=== PATIENT | female | born 2005 | race Caucasian/White ===

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

== ENCOUNTER 2023-02-14 20:37 | Emergency (ER) | payer OTHER ==
[~2023-02-14] VITALS: Ht 162.6 cm; Wt 49.9 kg
[~2023-02-14 20:37] MED LIST: 8 HOUR650 MG PO; DICLOXACILLIN500 MG PO; IBUPROFEN800 MG PO; IRON325 M1 PO; PRENATAL 19 CH1 EAC1 PO; VITAMIN C250 M1 PO
[2023-02-14] MEDS ORDERED: CLEOCIN HCL300 MG PO (21:43)
[2023-02-14 21:49] VITALS: BP 110/83
== END 2023-02-14 21:50 | disposition home or self-care (01) ==
LOC: ED 20:37
DX: K04.7 Periapical abscess without sinus (principal); Z79.899 Other long term (current) drug therapy
CPT/HCPCS: 64400; 99282-25

== ENCOUNTER 2023-04-19 11:23 | Emergency (ER) | payer OTHER ==
[~2023-04-19] VITALS: Ht 162.6 cm; Wt 46.7 kg
[~2023-04-19 11:23] MED LIST changes: +CLEOCIN HCL300 MG PO
[2023-04-19 11:36] LABS: BILIRUBIN, URINE NEGATIVE (negative); BLOOD/HGB, URINE MODERATE (Negative); KETONE, URINE SMALL (Negative); LEUK ESTERASE, URINE NEGATIVE (negative); NITRITE, URINE NEGATIVE (negative)
[2023-04-19 11:48] LABS: EPITHELIAL CELLS, URINE SQUAMOUS 4+ /lpf (0-1+); REFLEX CULTURE, URINE No (No); WHITE BLOOD CELLS, URINE 0-1 /HPF (0-5)
[2023-04-19 12:15] LABS: BASOPHILS 0.7 % (0-2); HEMATOCRIT 38.1 % (35.0-50.0); HEMOGLOBIN 13.1 g/dL (12.0-18.0); MCH 29.3 (27-36); MCHC 34.4 g/dl (30-36); MCV 85.2 fl (81-99); MONOCYTES 4.2 % (0-12); NEUTROPHILS 68.1 % (39-80); PLATELET COUNT 303 K/uL (140-440); RBC 4.47 M/ul (4.3-5.7); RDW 12.8 (10.5-15.0)
[2023-04-19 12:31] LABS: ALBUMIN 4.3 g/dL (3.4-5.0); ALBUMIN/GLOBULIN RATIO 1.48 (1.1-2.4); ANION GAP 12.8 (7-21); BILIRUBIN, TOTAL 0.9 ng/dL (0.2-1.0); BUN/CREATININE RATIO 16.21 (6.0-28.6); CALCIUM 8.7 mg/dL (8.5-10.1); CREATININE, SERUM 0.74 mg/dL (0.55-1.02); POTASSIUM 3.8 mmol/L (3.5-5.1); PROTEIN, TOTAL 7.2 g/dL (6.4-8.2)
[2023-04-19 13:18] VITALS: BP 118/78
== END 2023-04-19 13:18 | disposition home or self-care (01) ==
LOC: ED 11:23
PROVIDERS: Emergency Medicine
DX: R10.30 Lower abdominal pain, unspecified (principal); Z79.899 Other long term (current) drug therapy
CPT/HCPCS: 36415; 80053; 81001; 84702; 84703; 85025; 99283

== ENCOUNTER 2023-04-19 17:00 | Emergency (ER) | payer OTHER ==
[~2023-04-19] VITALS: Ht 162.6 cm; Wt 46.7 kg
--- OUTSIDE RECORDS SUMMARY | 2023-04-19 17:08 | XMS ---
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 [facility] VISIT COUNT (12 MO.) 3 [facility] TOTAL 3 NOTE: Visits indicate total known visits. ED/UCC VISIT TRACKING (12 MO.) 04/19/2023 17:01 [facility] [place] TYPE: Emergency COMPLAINT: - ARM NUMBNESS 04/19/2023 11:24 [facility] [place] TYPE: Emergency COMPLAINT: - URINE PROBLEM 02/14/2023 20:[address] 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
[2023-04-19 20:26] VITALS: BP 98/60
== END 2023-04-19 20:27 | disposition home or self-care (01) ==
LOC: ED 17:00
DX: B34.9 Viral infection, unspecified (principal); Z79.899 Other long term (current) drug therapy
CPT/HCPCS: 99283

== ENCOUNTER 2023-05-01 06:11 | Emergency (ER) | payer OTHER ==
[~2023-05-01] VITALS: Ht 162.6 cm; Wt 47.0 kg
--- OUTSIDE RECORDS SUMMARY | 2023-05-01 06:18 | XMS ---
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 - 2 Visits in 30 Days CARE PROVIDERS -Jonna- Dentist: Independent Living Instructor [facility] PHONE: [phone] -Abhijit- Dentist: Independent Living Instructor [facility] PHONE: [phone] Colette has no Care Guidelines for this patient. [facility] VISIT COUNT (12 MO.) [address] [place] [address] TOTAL 4 NOTE: Visits indicate total known visits. ED/UCC VISIT TRACKING (12 MO.) 05/01/2023 06:12 [facility] [place] TYPE: Emergency COMPLAINT: - HIT BY FALLING OBJECT 04/19/2023 17:01 [facility] [place] TYPE: Emergency COMPLAINT: - ARM NUMBNESS DIAGNOSES: - Anesthesia of skin - Other alf (current) drug therapy - Viral infection, unspecified 04/19/2023 11:[address] 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
[2023-05-01] MEDS ORDERED: PRENATAL DHA200 MG PO (06:22)
[2023-05-01 07:35] VITALS: BP 130/95
== END 2023-05-01 07:30 | disposition home or self-care (01) ==
LOC: ED 06:11
DX: S00.12XA Contusion of left eyelid and periocular area, initial encounter (principal); Z79.899 Other long term (current) drug therapy; Y04.0XXA Assault by unarmed brawl or fight, initial encounter; Y92.009 Unspecified place in unspecified non-institutional (private) residence as the place of occurrence of the external cause
CPT/HCPCS: 70486; 99284-25

== ENCOUNTER 2024-01-23 22:48 | Inpatient (IN) | payer OTHER ==
[~2024-01-23] VITALS: Ht 162.6 cm; Wt 60.8 kg
[~2024-01-23 22:48] MED LIST changes: +CALCIUM500 M1 PO; +ONDANSETRON ODT4 MG PO; +PRENATAL DHA200 MG PO
[2024-01-24] MEDS ORDERED: CALCIUM CARBONATE 500 MG CHEW PO PRN ×2 (00:30→12:00)
[2024-01-24] MEDS ORDERED: OXYTOCIN/DEXTROSE 5% 20 UNITS/100 ML BAG IV SCH (00:30)
[2024-01-24] MEDS ORDERED: MAGNESIUM HYDROXIDE/AL HYDROX 30 ML CUP PO PRN ×2 (00:30→12:00)
[2024-01-24] MEDS ORDERED: LACTATED RINGER'S 1,000 ML IV PRN (00:30)
[2024-01-24] MEDS ORDERED: LACTATED RINGER'S 1,000 ML IV SCH (00:30)
[2024-01-24] MEDS ORDERED: LIDOCAINE 2% VISCOUS 6 ML SYR TOP ONE ×2 (00:30)
[2024-01-24 00:48] LABS: HEMATOCRIT 36.9 % (35.0-50.0); HEMOGLOBIN 12.3 g/dL (12.0-18.0); MCH 28.4 (27-36); MCHC 33.4 g/dl (30-36); MCV 84.9 fl (81-99); RBC 4.35 M/ul (4.3-5.7); RDW 13.1 (10.5-15.0)
[2024-01-24 00:55] LABS: AMPHETAMINES, URINE NEGATIVE (NEGATIVE); BARBITURATES, URINE NEGATIVE (NEGATIVE); BENZODIAZEPINE, URINE NEGATIVE (NEGATIVE); BUPRENORPHINE, URINE NEGATIVE (NEGATIVE); CANNABINOID, URINE NEGATIVE (NEGATIVE); COCAINE, URINE NEGATIVE (NEGATIVE); ECSTASY, URINE NEGATIVE (NEGATIVE); FENTANYL, URINE NEGATIVE (NEGATIVE); METHADONE, URINE NEGATIVE (NEGATIVE); OPIATES, URINE NEGATIVE (NEGATIVE); OXYCODONE, URINE NEGATIVE (NEGATIVE); PHENCYCLIDINE, URINE NEGATIVE (NEGATIVE)
[2024-01-24 01:28] LABS: ABO A; RH POSITIVE
[2024-01-24 01:29] LABS: ANTIBODY SCREEN NEGATIVE
[2024-01-24] MEDS ORDERED: ROPIVACAINE 0.2% 200 ML BAG ONE (02:14)
[2024-01-24] MEDS ORDERED: LACTATED RINGER'S 500 ML IV PRN (03:00)
[2024-01-24] MEDS ORDERED: LACTATED RINGER'S 2,000 ML IV ONE (03:00)
[2024-01-24] MEDS ORDERED: ROPIVACAINE 0.2% 200 ML BAG EPIDURAL SCH (03:00)
[2024-01-24] MEDS ORDERED: ePHEDrine sulfate 5 MG/ML SYRINGE IV PRN (03:00)
[2024-01-24 03:19] VITALS: BP 114/68
[2024-01-24] MEDS ORDERED: SENNOSIDES/DOCUSATE 1 EA TAB PO SCH (11:54)
[2024-01-24] MEDS ORDERED: IBUPROFEN 600 MG TAB PO PRN (12:00)
[2024-01-24] MEDS ORDERED: WITCH HAZEL/GLYCERIN 1 EA PAD TOP PRN (12:00)
[2024-01-24] MEDS ORDERED: MAGNESIUM HYDROXIDE 30 ML UDC PO PRN (12:00)
[2024-01-24] MEDS ORDERED: OXYTOCIN/0.9 % SODIUM CHLORIDE 500 ML IV SCH (12:00)
[2024-01-24] MEDS ORDERED: ACETAMINOPHEN 325 MG TAB PO PRN (12:00)
[2024-01-24] MEDS ORDERED: BENZOCAINE 60 ML AEROSOL TOP PRN (12:00)
[2024-01-24] MEDS ORDERED: HYDROCORTISONE ACETATE 25 MG SUPP PR PRN (12:00)
--- NOTE | 2024-01-25 07:35 | PR ---
[facility] [address] [facility] [place], [place] [address] Signed PP Progress Notes Datetime Report Generated by CPN: 01/25/2024 07:35 SUBJECTIVE: [id number] Pain: Within Normal Limits Nausea/Vomiting: Denies Flatus: Yes Vital Signs: [id number] Vital Signs: Reviewed; Within Normal Limits Cardiovascular: Normal Respiratory: Normal Abdomen/Uterus: Normal Lochia: Normal Vulva/Perineum: Not Done Breasts: Not Done CVA Tenderness: Not Done Extremities: Normal Incision: Not Applicable Progress: Normal IMPRESSION/PLAN/PROCEDURES: [id number] Impression: Normal Progression Plan: Continue Present Management; Discharge Progress Notes: Recovering well. going well. Normal lochia. Desires D/C today. Signing Physician: Rox Betts MD Copies: ~ *Electronically Signed* 01/25/24 0735 ROX BETTS MD PATIENT NAME: AMADEO MOODY PROGRESS NOTE DATE OF : 03 PHYSICIAN: ROX BETTS MD RPT #: [id number] REPORT IS CONFIDENTIAL AND NOT TO BE RELEASED WITHOUT AUTHORIZATION
[2024-01-25] MEDS ORDERED: MENTHOL/CETYLPYRD CL 1 LOZ LOZENGE MM PRN (07:45)
[2024-01-28] MEDS ORDERED: PEPCID20 MG PO (01:11)
== END 2024-01-25 14:15 | disposition home or self-care (01) | DRG 807 ==
LOC: FBCO 22:48 → FBC 01-24 00:09
PROVIDERS: ADMIT Obstetrics & Gynecology; ATTEND Obstetrics & Gynecology
PROC: 10E0XZZ Delivery of Products of Conception, External Approach (ICD-10-PCS; principal; 2024-01-24)
PROC: 0UQMXZZ Repair Vulva, External Approach (ICD-10-PCS; 2024-01-24)
PROC: 3E0R3BZ Introduction of Anesthetic Agent into Spinal Canal, Percutaneous Approach (ICD-10-PCS; 2024-01-24)
PROC: 3E0R33Z Introduction of Anti-inflammatory into Spinal Canal, Percutaneous Approach (ICD-10-PCS; 2024-01-24)
DX: O99.02 Anemia complicating childbirth (principal); Z37.0 Single live birth; Z3A.37 37 weeks gestation of pregnancy; Z91.040 Latex allergy status; O70.0 First degree perineal laceration during delivery; Z98.890 Other specified postprocedural states; Z79.899 Other long term (current) drug therapy
CPT/HCPCS: 01960; 36415; 59025; 80307; 85027; 86850; 86900; 86901; A9270; G0463; J7121

== ENCOUNTER 2024-05-25 19:41 | Emergency (ER) | payer OTHER ==
[~2024-05-25] VITALS: Ht 152.4 cm; Wt 54.9 kg
[~2024-05-25 19:41] MED LIST changes: +PEPCID20 MG PO
[2024-05-25 20:10] VITALS: BP 102/82
== END 2024-05-25 20:10 | disposition home or self-care (01) ==
LOC: ED 19:41
DX: S09.90XA Unspecified injury of head, initial encounter (principal); Z87.828 Personal history of other (healed) physical injury and trauma; Z79.899 Other long term (current) drug therapy; W01.198A Fall on same level from slipping, tripping and stumbling with subsequent striking against other object, initial encounter
CPT/HCPCS: 99283

== ENCOUNTER 2024-08-27 18:59 | Emergency (ER) | payer OTHER ==
[~2024-08-27] VITALS: Ht 152.4 cm; Wt 51.0 kg
[2024-08-27 20:04] LABS: BASOPHILS 0.4 % (0-2); EOSINOPHILS 2.5 % (0-6); HEMATOCRIT 35.5 % (35.0-50.0); HEMOGLOBIN 12.1 g/dL (12.0-18.0); LYMPHOCYTES 31.3 % (24-44); MCH 27.7 (27-36); MCV 81.4 fl (81-99); MONOCYTES 5.9 % (0-12); NEUTROPHILS 59.9 % (39-80); PLATELET COUNT 312 K/uL (140-440); RBC 4.37 M/ul (4.3-5.7); RDW 13.7 (10.5-15.0)
[2024-08-27 20:23] LABS: ALBUMIN 3.7 g/dL (3.4-5.0); ALBUMIN/GLOBULIN RATIO 1.19 (1.1-2.4); ALKALINE PHOSPHATASE 100 U/L (46-116); ALT (SGPT) 16 U/L (14-59); ANION GAP 8.7 (7-21); AST (SGOT) 8 U/L (15-37); BILIRUBIN, TOTAL 0.3 mg/dL (0.2-1.0); BUN/CREATININE RATIO 27.86 (6.0-28.6); CALCIUM 8.7 mg/dL (8.5-10.1); CARBON DIOXIDE 30 mmol/L (21-32); CHLORIDE 106 mmol/L (98-107); CREATININE, SERUM 0.61 mg/dL (0.55-1.02); GLOMERULAR FILTRATION RATE,EST 130 mL/min (>60); POTASSIUM 3.7 mmol/L (3.5-5.1); PROTEIN, TOTAL 6.8 g/dL (6.4-8.2); UREA NITROGEN 17 mg/dL (7-18)
[2024-08-27 21:00] VITALS: BP 102/73
== END 2024-08-27 21:00 | disposition home or self-care (01) ==
LOC: ED 18:59
PROVIDERS: Emergency Medicine
DX: O20.9 Hemorrhage in early pregnancy, unspecified (principal); Z79.899 Other long term (current) drug therapy
CPT/HCPCS: 36415; 80053; 81001; 84702; 85025; 99284

== ENCOUNTER 2025-03-18 19:13 | Emergency (ER) | payer OTHER ==
[~2025-03-18] VITALS: Ht 152.4 cm; Wt 48.2 kg
[2025-03-18] MEDS ORDERED: SODIUM CHLORIDE 0.9% 1,000 ML IV ONE ×2 (19:45→21:15)
[2025-03-18 20:16] LABS: ALT (SGPT) 9.0 U/L (14-59); AST (SGOT) 9.0 U/L (15-37); GLOMERULAR FILTRATION RATE,EST 129.0 mL/min (>60); PROTEIN, TOTAL 6.9 g/dL (6.4-8.2); UREA NITROGEN 13.0 mg/dL (7-18)
[2025-03-18 21:06] LABS: CORONAVIRUS COVID-19 AG NEGATIVE (NEGATIVE)
[2025-03-18 22:16] LABS: BLOOD/HGB, URINE NEGATIVE (Negative); KETONE, URINE TRACE (Negative); LEUK ESTERASE, URINE TRACE (negative); NITRITE, URINE NEGATIVE (negative)
[2025-03-18 22:28] LABS: BACTERIA, URINE NONE SEEN /hpf (negative); CASTS, URINE NONE SEEN \\lpf; CRYSTALS, URINE NONE SEEN (0-1+); EPITHELIAL CELLS, URINE SQUAMOUS 3+ /lpf (0-1+); REFLEX CULTURE, URINE No (No)
[2025-03-18] MEDS ORDERED: ONDANSETRON ODT8 MG PO (22:45)
[2025-03-18 22:59] VITALS: BP 94/54
[2025-03-18] MEDS ORDERED: ONDANSETRON 4 MG HOME.PACK SL ONE (23:00)
== END 2025-03-18 23:01 | disposition home or self-care (01) ==
LOC: ED 19:13
PROVIDERS: Family Medicine
DX: A08.4 Viral intestinal infection, unspecified (principal)
CPT/HCPCS: 36415; 71045; 80053; 81001; 83690; 84703; 96361; 96374; 99284-25; A9270; J2405; J7030